=== PATIENT | male | born 1975 | race Caucasian/White ===

== ENCOUNTER → 2022-02-08 | Emergency (ER) | payer MEDICAID | LOC: ER 01:14 | DX: Z53.21 Procedure and treatment not carried out due to patient leaving prior to being seen by health care provider (principal) ==

== ENCOUNTER 2023-08-19 19:52 | Emergency (ER) | payer MEDICAID ==
[~2023-08-19] VITALS: Ht 180.3 cm; Wt 85.0 kg
[2023-08-19 20:03] VITALS: TEMP 98.7; O2SAT 98
[2023-08-19 20:54] LABS: BASOPHILS % 1.5 % (0.0-2.0); EOSINOPHILS % 3.5 % (0.0-5.0); HEMATOCRIT. 42.5 % (42.0-52.0); HEMOGLOBIN. 14.7 g/dL (14.0-18.0); LYMPHOCYTES % 30.5 % (20.0-50.0); MEAN CORPUSCULAR HEMOGLOBIN 29.6 pg (28.0-32.0); MEAN CORPUSCULAR HGB CONC 34.5 g/dL (31.0-37.0); MEAN CORPUSCULAR VOLUME 85.8 fL (80.0-94.0); MEAN PLATELET VOLUME 6.7 fl (7.4-10.4); MONOCYTES % 6.8 % (2.0-8.0); NEUTROPHILS % 57.7 % (40.0-76.0); PLATELET 285 x1000/uL (130-400); RED BLOOD CELL COUNT 4.96 mill/uL (4.7-6.1); RED CELL DISTRIBUTION WIDTH 12.9 % (11.6-14.6); WHITE BLOOD COUNT 6.2 x1000/uL (4.5-11.0)
[2023-08-19 20:57] LABS: CHLORIDE 107 mEq/L (98-107); INDEX HEMOLYSI 1 (1-3); INDEX ICTERIC 1 (1-4); INDEX LIPEMIC 1 (1-3); POTASSIUM 3.7 mEq/L (3.5-5.1); SODIUM 140 mEq/L (136-145)
[2023-08-19 21:07] LABS: ALANINE AMINOTRANSFERASE 22 IU/L (13-61); ALBUMIN 4.1 g/dL (3.4-5.0); ASPARTATE AMINOTRANSFERASE 18 IU/L (15-37); BILIRUBIN TOTAL 0.6 mg/dL (0.1-1.0); CALCIUM 8.5 mg/dL (8.5-10.1); CARBON DIOXIDE 27 mEq/L (21-32); CREATININE 0.6 mg/dL (0.6-1.3); GLUCOSE 106 mg/dL (70-105); NT PRO B-TYPE NATRIURETIC PEP 67 pg/mL (5-125); PROTEIN TOTAL 7.6 g/dL (6.0-8.3); TROPONIN I HIGH SENSITIVITY 7 ng/L (<78); UREA NITROGEN BLOOD 11 mg/dL (7-21)
[2023-08-19 21:17] VITALS: BP 153/104; PULSE 89; RESP 16
== END 2023-08-19 21:21 | disposition home or self-care (01) ==
LOC: ER 19:52
DX: R06.02 Shortness of breath (principal)
CPT/HCPCS: 36415; 71045; 80053; 83880; 84484; 85025; 93005; 99285

== ENCOUNTER 2023-09-24 01:46 | Emergency (ER) | payer BC, MEDICAID ==
[~2023-09-24] VITALS: Ht 177.8 cm; Wt 104.1 kg
[2023-09-24 01:56] VITALS: BP 164/104; PULSE 115; RESP 18; TEMP 98.6; O2SAT 99
[2023-09-24 02:37] LABS: BASOPHILS % 1.1 % (0.0-2.0); EOSINOPHILS % 3.2 % (0.0-5.0); HEMATOCRIT. 44.5 % (42.0-52.0); HEMOGLOBIN. 15.6 g/dL (14.0-18.0); LYMPHOCYTES % 17.9 % (20.0-50.0); MEAN CORPUSCULAR HEMOGLOBIN 30.5 pg (28.0-32.0); MEAN PLATELET VOLUME 6.9 fl (7.4-10.4); MONOCYTES % 8.8 % (2.0-8.0); PLATELET 291 x1000/uL (130-400); RED BLOOD CELL COUNT 5.12 mill/uL (4.7-6.1); RED CELL DISTRIBUTION WIDTH 12.5 % (11.6-14.6); WHITE BLOOD COUNT 8.5 x1000/uL (4.5-11.0)
[2023-09-24 02:45] LABS: ALANINE AMINOTRANSFERASE 16 IU/L (10-49); ALBUMIN 4.4 g/dL (3.2-4.8); ASPARTATE AMINOTRANSFERASE 24 IU/L (<34); BILIRUBIN TOTAL 1.1 mg/dL (0.1-1.0); CALCIUM 9.2 mg/dL (8.7-10.4); CARBON DIOXIDE 27 mEq/L (21-32); CHLORIDE 105 mEq/L (98-107); CREATININE 0.8 mg/dL (0.6-1.3); GLUCOSE 106 mg/dL (70-105); INR 1.1; PARTIAL THROMBOPLASTIN TIME 27.9 sec (23.4-31.0); POTASSIUM 3.8 mEq/L (3.5-5.1); PROTEIN TOTAL 6.8 g/dL (6.0-8.3); PROTHROMBIN TIME 11.5 sec (9.6-11.0); SODIUM 140 mEq/L (136-145); TROPONIN I HIGH SENSITIVITY 4 ng/L (3.0-53); UREA NITROGEN BLOOD 7 mg/dL (9-23)
[2023-09-24 06:38] LABS: CLARITY URINE CLEAR (CLEAR); COLOR URINE YELLOW (YELLOW); PH URINE 5.5 (4.5-8.0); SPECIFIC GRAVITY URINE 1.015 (1.005-1.030)
[2023-09-24 06:39] LABS: GLUCOSE URINE NEGATIVE (NEGATIVE); KETONES URINE TRACE (NEGATIVE); NITRITE URINE NEGATIVE (NEGATIVE); OCCULT BLOOD URINE NEGATIVE (NEGATIVE); PROTEIN URINE NEGATIVE (NEGATIVE)
[2023-09-24 06:40] LABS: LEUKOCYTE ESTERASE URINE NEGATIVE (NEGATIVE)
== END 2023-09-24 08:18 | disposition left against medical advice (07) ==
LOC: ER 01:46
DX: R07.89 Other chest pain (principal); E11.9 Type 2 diabetes mellitus without complications; I10 Essential (primary) hypertension
CPT/HCPCS: 36415; 71045; 80053; 81003; 84484; 85025; 93005; 99281; 99285